=== PATIENT | female | born 1945 | race Caucasian/White ===

== ENCOUNTER 2025-01-06 22:12 | Emergency (ER) | payer MEDICARE, SELFPAY ==
[2025-01-06 22:15] VITALS: BMI 33.9
--- NOTE | 2025-01-06 22:32 | XR_ITS ---
Examination: CT cervical spine without contrast 2-D sagittal reconstructions 2-D coronal reconstructions 3-D reconstructions. Exam date and time:January 06, 2025 1112 hours INDICATIONS: Ground-level fall today with injury to the neck, neck pain CTDI:vol (mGy) 9.83 DLP: (mGycm) 205 Technique: Multiple 2 mm axial sections of the cervical spine have been obtained. The coronal and sagittal reconstructions have been obtained. 3-D reconstructions have been obtained. Low dose protocols were performed. One or more of the following dose reduction techniques were used; automated exposure control, adjustment of the mA and/or KV according to patient size, use of iterative reconstruction technique. Findings: Axial sections demonstrate intact base of the skull. C1 exhibit satisfactory relationship to the odontoid. No acute cervical vertebral body fracture seen. Alignment posterior spinous processes satisfactory. Impression: No acute cervical fracture.
--- NOTE | 2025-01-06 22:32 | XR_ITS ---
Examination: CT brain head without contrast. 2-D sagittal coronal reconstructions Date and time of exam:January 06, 2025 1112 hours INDICATIONS: Patient fell today with injury to the head, head pain CTDI: vol (mGy):51.1 DLP: (mGycm):1116 Technique: Multiple CT axial sections of the brain have been obtained, 5 mm slice thickness. Contrast has not been administered. 2-D sagittal, coronal reconstructions have been obtained Low dose protocols were performed. One or more of the following dose reduction techniques were used; automated exposure control, adjustment of the mA and/or KV according to patient size, use of iterative reconstruction technique. Findings: No significant ventricular enlargement. 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 Left frontal scalp hematoma soft tissue swelling extending anterior to the left nasal bones and left orbit Intra-axial or extra-axial hemorrhage density is not seen. No mass effect or midline shift Basal cisterns are not remarkable. Fourth ventricle is midline. Cranial vault intact. Impression: Negative for acute hemorrhage, mass effect or midline shift
[2025-01-06 22:37] VITALS: BP 176/78; PULSE 69; RESP 19; TEMP 36.5; O2SAT 93
[2025-01-06 23:34] LABS: Basophils # (Auto) 0.1 Thou/mm3 (0.0-0.2); Basophils % (Auto) 1 % (0-2.5); Eosinophils # (Auto) 0.2 Thou/mm3 (0.0-0.5); Eosinophils % (Auto) 2 % (0-10); Hematocrit 38.2 % (36.0-46.0); Hemoglobin 13.6 g/dL (12.0-16.0); Immature Granulocytes % (Auto) 0 % (0-0); Immature Granulocytes Auto 0.03 Thou/mm3 (0.00-0.00); Lymphocytes % (Auto) 12 % (10-50); Mean Corpuscular HGB Conc 35.6 g/dl (31.0-37.0); Mean Corpuscular Volume 87 fL (80-100); Monocytes # (Auto) 0.8 Thou/mm3 (0.0-0.8); Monocytes % (Auto) 9 % (0-12); Neutrophils # (Auto) 6.5 Thou/mm3 (1.8-7.7); Neutrophils % (Auto) 76 % (37-80); Nucleated Red Blood Cell % 0 /100 WBC (0); Platelet Count 157 Thou/mm3 (140-440); RDW Standard Deviation 42.2 fL (36.4-46.3); Red Blood Count 4.39 Miln/mm3 (4.00-5.20); White Blood Count 8.5 Thou/mm3 (3.6-11.0)
[2025-01-06 23:45] LABS: Partial Thromboplastin Time 29.5 Seconds (22.0-36.0); Prothrombin Time 11.4 Seconds (9.0-12.2)
--- NOTE | 2025-01-06 23:47 | PD.EDFALL ---
ED Fall Injury RME/HPI General Chief Complaint: Fall Stated Complaint: FALL, HEAD INJU, HAND/KNEE PAIN, PT ON ELIQUIS Time Seen by Provider: 01/06/25 22:59 Source: patient Arrival date/time: 01/06/25 22:12 Limitations: no limitations RME / HPI RME / HPI Narrative: Dr. [facility] Main ED Evaluation: 79yo female with a history of CAD, HTN, aFib on Eliquis, DM BIBA from home presents to the ED for a fall x 30 minutes [employer]. Patient states she was walking when she tripped and fell, reporting she hit her head on the cement. She denies any loss of consciousness. Patient complains of having bilateral knee pain. Patient denies any chest pain, abdominal pain, back pain, shortness of breath or any other associated symptoms. -PMHx: CAD, HTN, aFib, DM -Social Hx: Former smoker -Current Medications: reviewed; on Eliquis. -PCP: Located in [place]. Related Data Home Medications ?Medication ?Instructions ?Recorded ?Confirmed Valsartan/Hydrochlorothiazide * 1 tab PO QAM #0 tabs 06/18/15 09/11/23 (DIOVAN HCT 320/25 *) amlodipine 5 mg tablet (Norvasc) 5 mg PO QDAY #0 tabs 06/18/15 09/11/23 apixaban 5 mg tablet (Eliquis) 5 mg PO BID ##0 06/18/15 09/11/23 Held on 09/11/23. Instructions: Resume on 09/12/23. YOU CAN RESAUME THIS MEDICATION AT YOUR USUAL TIME ON THIS DATE atenolol 100 mg tablet (Tenormin) 100 mg PO QAM #0 tabs 06/18/15 09/11/23 rosuvastatin 5 mg tablet (Crestor) 5 mg PO QDAY #0 tabs 06/18/15 09/11/23 insulin aspart U-100 100 unit/mL 4 - 6 unit subcut TID 09/11/23 09/11/23 subcutaneous solution (Novolog U-100 Insulin aspart) insulin glargine 100 unit/mL (3 6 - 8 unit subcut HS 09/11/23 09/11/23 mL) subcutaneous pen (Lantus Solostar U-100 Insulin) Allergies Allergy/AdvReac Type Severity Reaction Status Date / Time No Known Allergies Allergy Verified 01/06/25 22:15 Review of Systems Review of Systems Systems Reviewed: All systems reviewed, normal except as documented Past Medical History Past Medical History NEUROLOGIC: Positive Neurological Disorders; Negative Cerebrovascular Accident, Transient Ischemic Attacks (TIA), Dementia, Alzheimer's Disease, Parkinson's Disease, Brain Tumor, Meningitis, Seizures, Epilepsy, Multiple Sclerosis, Cerebral Palsy, Amyotrophic Lateral Sclerosis (ALS/Melonie Gehrig's), Guillain-[place] Syndrome, Spina Bifida, Paralysis, Peripheral Neuropathy, Davis's Palsy, Subdural Hematoma, Migraine, Head Trauma, Spinal Cord Injury or Traumatic Brain Injury CARDIAC: Positive Cardiac Disorders, Cardiac Arrhythmia, Atrial Fibrillation, Angina, Coronary Artery Disease, Hypercholesterolemia and Hypertension; Negative Myocardial Infarction, Heart Murmur, Atherosclerotic Heart Disease, Peripheral Vascular Disease, Aneurysm, Congestive Heart Failure, Congenital Heart Disease, Valvular Heart Disease, Rheumatic Fever, Cardiomyopathy, Edema, Pericarditis, Cellulitis, Deep Vein Thrombosis, Hypotension or Varicose Veins RESPIRATORY: Negative Chronic Obstructive Pulmonary Disease (COPD), Asthma, Bronchitis, Emphysema, Pneumonia, Pulmonary Fibrosis, Cystic Fibrosis, Tuberculosis, Pulmonary Embolism, Pulmonary Edema or Sleep Apnea GASTROINTESTINAL: Positive Gastrointestinal Disorders and Obesity; Negative Hepatitis, Cirrhosis, Pancreatitis, Celiac Disease, Gall Bladder Disease, Gastrointestinal Bleed, Esophageal Varices, Palmer's Esophagus, Colitis, Ulcerative Colitis, Diverticulitis, Diverticulosis, Ulcer, Colorectal Cancer, Irritable Bowel, Crohn's Disease, Obstructive Bowel, Hiatal Hernia, Hemorrhoids or Gastroesophageal Reflux Disease GENITOURINARY: Negative Genitourinary Disorders, Renal Disease, Kidney Stones, Polycystic Kidney Disease, Neurogenic Bladder, Inguinal Hernia or Dialysis REPRODUCTIVE: Positive Endometriosis (WITH HYSTERECTOMY.) and Previous Pregnancies (); Negative Breast Cancer, Genital Herpes, Gonorrhea, Pelvic Inflammatory Disease, Syphilis or Uterine Prolapse MUSCULOSKELETAL: Positive Musculoskeletal Disorders (DIFFICULTY LAYING FLAT.) and Arthritis; Negative Muscular Dystrophy, Myasthenia Gravis, Marfan's Syndrome, Bone Cancer, Rheumatoid Arthritis, Osteoporosis, Degenerative Disk Disease, Gout, Scoliosis, Carpal Tunnel Syndrome, Fibromyalgia, Fractures, Degenerative Joint Disease, Osteomyelitis or Poliovirus ENT: Negative Cataracts, Glaucoma, Blind, Retinal Detachment, Macular Degeneration, Ear Infection, Deafness, Head Trauma or Eye Prosthesis ENDOCRINE: Positive Endocrine Disorders and Diabetes Mellitus Type 2; Negative Diabetes Mellitus Type 1, Hypoglycemia, Roya's Syndrome, Markell's Disease, Hyperthyroidism, Hypothyroidism, Parathyroid Disease, Pituitary Disease, Systemic Lupus Erythematosus, Syndrome of Inappropriate Antidiuretic Hormone (SIADH), Adrenal Disease or Graves' Disease HEMATOLOGIC: Negative Blood Disorders, Anemia, Leukemia, Hemophilia, Thalassemia, Sickle Cell Disease or Clotting Problems PSYCHO/SOCIAL: Negative Psychiatric Problems, Schizophrenia, Recreational Drug Use, Bipolar Disorder, Depression, Anxiety, Behavior Problems, Self-Mutilation, Attention Deficit Disorder, Attention Deficit Hyperactivity Disorder, Depression, Post Traumatic Stress Disorder or Eating Disorder OTHER HISTORY: Positive Hospitalization, Blood Transfusions (PLASMA) and Measles; Negative Autoimmune Disease, Down Syndrome, Autism, Developmental Delay, Shingles, Falls, Blood Transfusion Reaction, Anesthesia Reactions, Organ Transplant, Chemotherapy, Radiation Therapy, Hyperbaric Therapy, MRSA, VRSA, Vancomycin-Resistant Enterococci, Human Immunodeficiency Virus (HIV), Chicken Pox, Mumps, Rubella (Spanish Measles), Pertussis, Clostridium Difficile, Cancer, Breast Cancer, Cervical Cancer, Colorectal Cancer, Lung Cancer or Ovarian Cancer Family History FAMILY HISTORY: Positive Family Cardiac Disorders (father passed from aneurysm, mother also had aneurysm.) and Family Cancer (MOTHER HAD LUNG CA.); Negative Family Psychiatric Problems, Family Respiratory Disorders, Family Gastrointestinal Problems, Family Surgery or Family Anesthesia Reaction Surgical History SURGICAL: Positive Cardiac Surgery, Open Heart Surgery, Coronary Artery Bypass Graft, Cardiac Catheterization, Angiogram and Hysterectomy; Negative Valve Replacement, Vascular Surgery, Coronary Stent, Pacemaker, Auto Implanted Cardiovert Defib, Carotid Endarterectomy, Endocrine Surgery, Thyroidectomy, Ear Surgery, Tympanostomy Tube, Eye Surgery, Nose Surgery, Oral Surgery, Tonsillectomy, Adenoidectomy, Cochlear Implant, Corneal Transplant, Throat Surgery, Abdominal Surgery, Tracheostomy, Gastric Bypass Surgery, Gastrostomy, Bowel Surgery, Nephrectomy, Transurethral Resection, Joint Replacement, Amputation, Open Reduction Internal Fixation, Arthroscopy, Neurologic Surgery, Brain Shunt, Mastectomy, Lumpectomy, Tubal Ligation, Section or Organ Transplant Social History SMOKING STATUS: Former smoker ED Exam Narrative Physical exam: Patient is awake and alert GCS 15 General Limitations: Present no limitations General appearance: Present alert and in no apparent distress Head Head exam: Present other (Ecchymosis to the left eye. 3 cm laceration forehead) Eye Eye exam: Present normal appearance, PERRL and EOMI; Absent scleral icterus ENT ENT exam: Present normal exam, normal oropharynx and TM's normal bilaterally (TMs are clear.. No septal hematoma) Neck Neck exam: Present normal inspection, full ROM and trachea midline Chest Chest inspection: Present normal inspection and symmetric chest wall rise Respiratory Respiratory exam: Present normal lung sounds bilaterally; Absent respiratory distress or wheezes Cardiovascular Cardiovascular exam: Present regular rate, normal rhythm and normal heart sounds Abdominal Exam Abdominal exam: Present soft and normal bowel sounds Extremities Exam Extremities exam: Present normal inspection, full ROM and other (Abrasion to the right anterior knee. Tenderness of patient to the left anterior knee. No open lacerations. Decreased range of motion bilaterally secondary to pain. No swelling.) Back Exam Back exam: Present normal inspection, full ROM and other (No tenderness thoracic or lumbar spine.); Absent tenderness Neurological Exam Neurological exam: Present alert, oriented X3 and CN II-XII intact; Absent motor sensory deficit Psychiatric Psychiatric exam: Present normal affect and normal mood Skin Skin exam: Present warm, dry, intact, normal color and other Course Quality Measures none Orders Category Date Time Status Irrigate Wound NOW Care 01/06/25 23:49 Active Miscellaneous Nursing Order X1 Care 01/06/25 23:50 Active Rigid cervical collar PRN Care 01/06/25 23:[address] cervical spine wo con Stat Exams 01/06/25 22:[address] head/brain wo con Stat Exams 01/06/25 22:32 Completed XR knee LT 3V Stat Exams 01/06/25 23:49 Taken XR knee RT 3V Stat Exams 01/06/25 23:48 Taken CBC Stat Lab 01/06/25 23:23 Completed CMP [Comprehensive Metabolic Panel] Stat Lab 01/06/25 23:23 Completed PT [Prothrombin Time with INR] Stat Lab 01/06/25 23:23 Completed PTT [Partial Thromboplastin Time] Stat Lab 01/06/25 23:23 Completed Lidocaine 1% 20 ml [Xylocaine 1% 20 ML] Med 01/07/25 01:42 Discontinued 20 ml INFL X1 ONE Lidocaine 1% Pf 5 ml [Xylocaine 1% Pf 5 ml] Med 01/07/25 01:12 Discontinued 10 ml INFL X1 ONE Lidocaine 1% Pf 5 ml [Xylocaine 1% Pf 5 ml] Med 01/07/25 01:18 Discontinued 20 ml INFL X1 ONE Vital Signs Vital signs: Vital Signs Temperature 97.7 F 01/06/25 22:37 Pulse Rate 69 01/06/25 22:37 Respiratory Rate 19 01/06/25 22:37 Blood Pressure 176/78 H 01/06/25 22:37 Pulse Oximetry (%) 93 L 01/06/25 22:37 Oxygen Delivery Method Room Air 01/06/25 22:37 Procedures -ED Laceration Laceration 1: Site: face Size (cm): 3 Description: linear Depth: simple, single layer Local Anesthetic: lidocaine 1% Amount of anesthesia used (mL): 5 Pre-repair: irrigated extensively Skin layer closed with: nylon Size (cm): 5-0 Number of sutures: 6 Technique: simple, interrupted Fall MDM Narrative MDM Narrative:: Scribe Attestation: 01/06/25 - Lexi Cobb am scribing for and in the presence of Dr. Neli. Patient data External records reviewed:: [facility] previous records (Per chart review, patient has no previous ED visits or admissions to this facility.) Clinical information provided by:: patient Social determinants that could affect healthcare access:: none Patient has the following chronic illnesses:: CAD, HTN, aFib on Eliquis, DM How is presenting disease/condition affected by chronic disease/condition?: uneffected by Evaluation data The following diagnostics were reviewed and interpreted by me:: lab results and radiology exam(s) Lab and/or radiology exams considered but not ordered:: none Interpretation Summary: CBC is normal, PT and INR are normal, PTT is normal, Glucose is 210, according to my interpretation. Right knee x-ray shows previous hardware in place, no fracture, no dislocation, no soft tissue swelling, according to my interpretation. Left knee x-ray shows osteoarthritis, no fractures, no dislocations, no soft tissue swelling, according to my interpretation. -------- [place] [facility] Report Signed Patient: DARRELL WATSON Record#: [id number] Birthdate: 1945 Age/Sex: 79 / F Location: [facility] Attending Dr: Ordering Physician: Tesha Goss MD Date of Service: 01/06/25 Procedure(s): CT cervical spine wo con Accession Number(s): [id number] cc: Raimundo Berry MD; Tesha Goss MD~ Examination: CT cervical spine without contrast 2-D sagittal reconstructions 2-D coronal reconstructions 3-D reconstructions. Exam date and time:January 06, 2025 1112 hours INDICATIONS: Ground-level fall today with injury to the neck, neck pain CTDI:vol (mGy) 9.83 DLP: (mGycm) 205 Technique: Multiple 2 mm axial sections of the cervical spine have been obtained. The coronal and sagittal reconstructions have been obtained. 3-D reconstructions have been obtained. Low dose protocols were performed. One or more of the following dose reduction techniques were used; automated exposure control, adjustment of the mA and/or KV according to patient size, use of iterative reconstruction technique. Findings: Axial sections demonstrate intact base of the skull. C1 exhibit satisfactory relationship to the odontoid. No acute cervical vertebral body fracture seen. Alignment posterior spinous processes satisfactory. Impression: No acute cervical fracture. Dictated By: Raimundo Berry MD Signed By: <Electronically signed by Raimundo Berry MD in [place]> 01/06/25 2346 [place] [facility] Report Signed Patient: DARRELL WATSON Record#: [id number] Birthdate: 1945 Age/Sex: 79 / F Location: [facility] Attending Dr: Ordering Physician: Tesha Goss MD Date of Service: 01/06/25 Procedure(s): CT head/brain wo con Accession Number(s): [id number] cc: Edinson Solis; Raimundo Berry MD; Tesha Goss MD~ Examination: CT brain head without contrast. 2-D sagittal coronal reconstructions Date and time of exam:January 06, 2025 1112 hours INDICATIONS: Patient fell today with injury to the head, head pain CTDI: vol (mGy):51.1 DLP: (mGycm):1116 Technique: Multiple CT axial sections of the brain have been obtained, 5 mm slice thickness. Contrast has not been administered. 2-D sagittal, coronal reconstructions have been obtained Low dose protocols were performed. One or more of the following dose reduction techniques were used; automated exposure control, adjustment of the mA and/or KV according to patient size, use of iterative reconstruction technique. Findings: No significant ventricular enlargement. 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 Left frontal scalp hematoma soft tissue swelling extending anterior to the left nasal bones and left orbit Intra-axial or extra-axial hemorrhage density is not seen. No mass effect or midline shift Basal cisterns are not remarkable. Fourth ventricle is midline. Cranial vault intact. Impression: Negative for acute hemorrhage, mass effect or midline shift Dictated By: Raimundo Berry MD Signed By: <Electronically signed by Raimundo Berry MD in [place]> 01/06/25 1838 Medications / Prescriptions Medications or Prescriptions considered but not ordered:: none Medication administrations:: Medication Administration History Discontinued Medications Lidocaine HCl (Lidocaine Inj Pf 1% 5 Ml Vial) 10 ml INFL X1 ONE Stop: 01/07/25 01:13 Last Admin: 01/07/25 01:43 Dose: Not Given Documented By: CVL Non-Admin Reason: Medication Not Available Lidocaine HCl (Lidocaine Inj Pf 1% 5 Ml Vial) 20 ml INFL X1 ONE Stop: 01/07/25 01:19 Last Admin: 01/07/25 01:43 Dose: Not Given Documented By: CVL Non-Admin Reason: Medication Not Available Lidocaine HCl (Lidocaine Hcl 1% 20 Ml Vial) 20 ml INFL X1 ONE Stop: 01/07/25 01:43 see above, if any Consultations Consultation(s) initiated? (list below): No Diagnosis Fall Differential Diagnosis: other (mechanical fall, ICH, laceration, contusion, fracture, dislocation) Most likely diagnosis given after review of the tests above:: see clinical impression below Admission Indicated Admission indicated?: not indicated Admission Request Was there a request for admission?: No Disposition Plan Disposition Plan: Discharge Discharge Attestation Discharge Attestation: The patient and all family members were given an opportunity to ask questions and understood the discharge instructions. Discharge instructions specifically effects, indications for sooner follow up or return to the emergency department, and the expected course of current diagnosis. Patient condition: Stable Discharge Plan Plan Patient Disposition: HOME (Self Care) Patient condition on transfer: Stable Prescriptions/Referrals Prescriptions/Med Rec: No Action atenolol [Tenormin] 100 MG tablet 100 mg PO QAM Qty: 0 amlodipine [Norvasc] 5 MG tablet 5 mg PO QDAY Qty: 0 rosuvastatin [Crestor] 5 MG tablet 5 mg PO QDAY Qty: 0 Eliquis 5 MG tablet 5 mg PO BID Qty: 0 Valsartan/Hydrochlorothiazide * (DIOVAN HCT 320/25 *) 1 TAB tablet 1 tab PO QAM Qty: 0 insulin glargine [Lantus Solostar U-100 Insulin] 100 unit/mL (3 mL) Insulin Pen 6 - 8 unit SUBCUT HS insulin aspart U-100 [Novolog U-100 Insulin aspart] 100 unit/mL Solution 4 - 6 unit SUBCUT TID Referrals: Edinson Solis MD [Primary Care Provider] - In 1 week Problem List Clinical Impression: CHI (closed head injury), Laceration of scalp, Ground-level fall Patient/Caregiver Discharge Instructions Education Materials: Preventing Falls Moving Safely ..., ED Laceration Scalp Sutures or ... Additional Instructions: Please get your sutures removed in 5 days. Follow up with your primary care provider for a recheck. Return to the emergency department for any worsening or other concerning symptoms. Print Language: Turkish Stand Alone Forms: Veronica Award Info., Patient Portal Info Letter
[2025-01-06 23:48] LABS: Alanine Aminotransferase 15 U/L (10-49); Albumin, Serum 4.6 gm/dL (3.4-4.8); Albumin/Globulin Ratio 1.6 (1.2-2.2); Alkaline Phosphatase 63 U/L (46-116); Anion Gap 12 (7-16); Aspartate Amino Transferase 22 U/L (0-34); BUN/Creatinine Ratio 14 Ratio (12-20); Bilirubin,Total 0.8 mg/dL (0.3-1.2); Blood Urea Nitrogen 14 mg/dL (9-23); Calcium 9.1 mg/dL (8.3-10.6); Calcium (Corrected) 9.1 mg/dL (8.5-10.1); Chloride 99 mMol/L (98-107); Estimated Creatinine Clearance 54.8 mL/min (>60); Globulin 2.8 gm/dL (2.3-3.5); Glucose 210 mg/dL (74-106); Osmolality,Calculated 280 (275-295); Potassium 3.5 mMol/L (3.4-5.1); Sodium 137 mMol/L (136-145); Total Protein 7.4 gm/dL (5.7-8.2); eGFR 58 See Note
--- NOTE | 2025-01-06 23:48 | XR_ITS ---
Examination: Knee, right , 3 views Technique: Knee AP, lateral, oblique 3 views Date and time of exam: January 07, 2025 at 0003 hours INDICATIONS: Patient fell today with injury to the knee, knee pain FINDINGS: Total right knee arthroplasty. Satisfactory alignment. No fracture. No loosening of the prosthetic components IMPRESSION: Total right knee arthroplasty with satisfactory alignment
--- NOTE | 2025-01-06 23:49 | XR_ITS ---
Examination: Knee, left , 3 views Technique: Knee AP, lateral, oblique 3 views Date and time of exam: January 07, 2025 0005 hours INDICATIONS: Patient fell today with injury to the knee, knee pain FINDINGS: Severe osteopenia No acute fracture Advanced tricompartment osteoarthritis IMPRESSION: No acute fracture
[2025-01-07 01:34] VITALS: BP 146/90; PULSE 64; RESP 18; TEMP 36.6; O2SAT 95
[2025-01-07] MEDS: LIDOCAINE HCL 1% 20 ML VIAL INFL (02:33)
[2025-01-07 02:45] VITALS: BP 140/89; PULSE 70; RESP 18; TEMP 36.6; O2SAT 95
== END 2025-01-07 02:45 | disposition home or self-care (01) ==
PROVIDERS: Emergency Provider Emergency Medicine; PCP Internal Medicine
DX: S01.01XA Laceration without foreign body of scalp, initial encounter (principal); S19.9XXA Unspecified injury of neck, initial encounter; S09.90XA Unspecified injury of head, initial encounter; S89.92XA Unspecified injury of left lower leg, initial encounter; S89.91XA Unspecified injury of right lower leg, initial encounter; M17.12 Unilateral primary osteoarthritis, left knee; W01.0XXA Fall on same level from slipping, tripping and stumbling without subsequent striking against object, initial encounter; Y93.01 Activity, walking, marching and hiking
CPT/HCPCS: 12002; 36415; 70450; 72125; 73562; 80053; 85025; 85610; 85730; 99284; J3490

== ENCOUNTER 2025-06-13 13:30 | Emergency (ER) | payer MEDICARE, SELFPAY ==
[2025-06-13 13:47] VITALS: BP 181/96; PULSE 64; RESP 21; TEMP 36.7; O2SAT 94; BMI 31.0
--- NOTE | 2025-06-13 13:48 | XR_ITS ---
Examination: Shoulder, right, 3 views Technique: Shoulder AP internal rotation, AP external rotation, Y view shoulder, 3 views Exam date and time : June 13, 2025, 1415 hours INDICATIONS: Patient fell today with injury of the shoulder, shoulder pain. FINDINGS: No shoulder fracture or dislocation Moderate osteoarthritis glenohumeral joint IMPRESSION: No shoulder fracture or dislocation
--- NOTE | 2025-06-13 13:48 | XR_ITS ---
Examination: CT brain head without contrast. 2-D sagittal coronal reconstructions Date and time of exam: June 13, 2025, 1416 hours INDICATIONS: Ground-level fall today with injury to the head, head pain CTDI: vol (mGy): 51 DLP: (mGycm): 1051 Technique: Multiple CT axial sections of the brain have been obtained, 5 mm slice thickness. Contrast has not been administered. 2-D sagittal, coronal reconstructions have been obtained Low dose protocols were performed. One or more of the following dose reduction techniques were used; automated exposure control, adjustment of the mA and/or KV according to patient size, use of iterative reconstruction technique. Findings: No significant ventricular enlargement. Intra-axial or extra-axial hemorrhage density is not seen. No mass effect or midline shift Basal cisterns are not remarkable. Fourth ventricle is midline. Cranial vault intact. 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
--- NOTE | 2025-06-13 13:48 | XR_ITS ---
Examination: CT cervical spine without contrast 2-D sagittal reconstructions 2-D coronal reconstructions 3-D reconstructions. Exam date and time: June 13, 2025, 1416 hours INDICATIONS: Ground-level fall today with injury to the neck, neck pain CTDI:vol (mGy) 17.2 DLP: (mGycm) 354 Technique: Multiple 2 mm axial sections of the cervical spine have been obtained. The coronal and sagittal reconstructions have been obtained. 3-D reconstructions have been obtained. Low dose protocols were performed. One or more of the following dose reduction techniques were used; automated exposure control, adjustment of the mA and/or KV according to patient size, use of iterative reconstruction technique. Findings: Axial sections demonstrate intact base of the skull. C1 exhibit satisfactory relationship to the odontoid. No acute cervical vertebral body fracture seen. Alignment posterior spinous processes satisfactory. Impression: No acute cervical fracture.
--- NOTE | 2025-06-13 13:48 | XR_ITS ---
EXAMINATION: PA chest single view TECHNIQUE: Upright PA chest single view Date and time: June 13, 2025, 1417 hours, comparison September 11, 2023 INDICATIONS: Patient fell today with chest pain FINDINGS: Moderate enlargement left ventricle CABG Cardiac leads satisfactory position Prominent vascular congestion No pneumothorax Clavicles ribs appear intact IMPRESSION: No pneumothorax Clavicles ribs appear intact
--- NOTE | 2025-06-13 13:50 | EDNOTE_ITS ---
<Statement entered by Rosa Thompson MD - 06/13/25 17:55> As co-signing physician, I was present and available for consult prn. I concur with the plan and care as documented by the midlevel provider. ED General RME/HPI General Chief complaint: Fall Stated complaint: HEAD LAC, RIGHT SHOULDER PAIN Time Seen by Provider: 06/13/25 13:44 Arrival date/time: 06/13/25 13:30 CC: Right sided headache HPI patient tripped and fell over a plastic box falling onto her right shoulder and head denies LOC admits she is on Eliquis. Patient currently denies dizziness blurred vision seeing spots altered mentation recurrent falls. Patient is awake alert oriented x 3 Glascow coma 15 no focal deficits with the scalp pain secondary to a small laceration with no active bleeding. Related Data Home Medications ?Medication ?Instructions ?Recorded ?Confirmed Valsartan/Hydrochlorothiazide * 1 tab PO QAM #0 tabs 1 09/11/23 (DIOVAN HCT 320/25 *) amlodipine 5 mg tablet (Norvasc) 5 mg PO QDAY #0 tabs 06/18/15 09/11/23 apixaban 5 mg tablet (Eliquis) 5 mg PO BID ##0 5 09/11/23 Held on 09/11/23. Instructions: Resume on 09/12/23. YOU CAN RESAUME THIS MEDICATION AT YOUR USUAL TIME ON THIS DATE atenolol 100 mg tablet (Tenormin) 100 mg PO QAM #0 tab s 06/18/15 09/11/23 rosuvastatin 5 mg tablet (Crestor) 5 mg PO QDAY #0 tab s 06/18/15 09/11/23 insulin aspart U-100 100 unit/mL 4 - 6 unit subcut TID 09/11/23 09/11/23 subcutaneous solution (Novolog U-100 Insulin aspart) insulin glargine 100 unit/mL (3 6 - 8 unit subcut HS 0 09/11/23 09/11/23 mL) subcutaneous pen (Lantus Solostar U-100 Insulin) Allergies Allergy/AdvReac Type Severity Reaction Status Date / Time No Known Allergies Allergy Verified 01/06/25 22:15 Review of Systems Review of Systems Narrative Review of Systems: GEN: No fever, no chills, no weight loss EYES: No discharge, no visual changes, no pain HEENT: No ear pain, no congestion, no sore throat PULM: No shortness of breath, no cough, no congestion CV: No chest pain, no dyspnea on exertion, no palpitations GI: No nausea, no vomiting, no diarrhea, no pain, no constipation : No frequency, no urgency, no dysuria MUSC/SKEL: No joint pain, no back pain SKIN: No rash PSYCH: No hallucinations, no depression HEME/LYMPH: No easy bleeding or bruising tendencies NEURO: No weakness, + headache Past Medical History Past Medical History NEUROLOGIC: Positive Neurological Disorders; Negative Cerebrovascular Accident, Transient Ischemic Attacks (TIA), Dementia, Alzheimer's Disease, Parkinson's Disease, Brain Tumor, Meningitis, Seizures, Epilepsy, Multiple Sclerosis, Cerebral Palsy, Amyotrophic Lateral Sclerosis (ALS/Melonie Gehrig's), Guillain-Zurich Syndrome, Spina Bifida, Paralysis, Peripheral Neuropathy, Davis's Palsy, Subdural Hematoma, Migraine, Head Trauma, Spinal Cord Injury or Traumatic Brain Injury CARDIAC: Positive Cardiac Disorders, Cardiac Arrhythmia, Atrial Fibrillation, Angina, Coronary Artery Disease, Hypercholesterolemia and Hypertension; Negative Myocardial Infarction, Heart Murmur, Atherosclerotic Heart Disease, Peripheral Vascular Disease, Aneurysm, Congestive Heart Failure, Congenital Heart Disease, Valvular Heart Disease, Rheumatic Fever, Cardiomyopathy, Edema, Pericarditis, Cellulitis, Deep Vein Thrombosis, Hypotension or Varicose Veins RESPIRATORY: Negative Chronic Obstructive Pulmonary Disease (COPD), Asthma, Bronchitis, Emphysema, Pneumonia, Pulmonary Fibrosis, Cystic Fibrosis, Tuberculosis, Pulmonary Embolism, Pulmonary Edema or Sleep Apnea GASTROINTESTINAL: Positive Gastrointestinal Disorders and Obesity; Negative Hepatitis, Cirrhosis, Pancreatitis, Celiac Disease, Gall Bladder Disease, Gastrointestinal Bleed, Esophageal Varices, Palmer's Esophagus, Colitis, Ulcerative Colitis, Diverticulitis, Diverticulosis, Ulcer, Colorectal Cancer, Irritable Bowel, Crohn's Disease, Obstructive Bowel, Hiatal Hernia, Hemorrhoids or Gastroesophageal Reflux Disease GENITOURINARY: Negative Genitourinary Disorders, Renal Disease, Kidney Stones, Polycystic Kidney Disease, Neurogenic Bladder, Inguinal Hernia or Dialysis REPRODUCTIVE: Positive Endometriosis (WITH HYSTERECTOMY.) and Previous Pregnanc ies (); Negative Breast Cancer, Genital Herpes, Gonorrhea, Pelvic Inflammatory Disease, Syphilis or Uterine Prolapse MUSCULOSKELETAL: Positive Musculoskeletal Disorders (DIFFICULTY LAYING FLAT.) and Arthritis; Negative Muscular Dystrophy, Myasthenia Gravis, Marfan's Syndrome, Bone Cancer, Rheumatoid Arthritis, Osteoporosis, Degenerative Disk Disease, Gout, Scoliosis, Carpal Tunnel Syndrome, Fibromyalgia, Fractures, Degenerative Joint Disease, Osteomyelitis or Poliovirus ENT: Negative Cataracts, Glaucoma, Blind, Retinal Detachment, Macular Degeneration, Ear Infection, Deafness, Head Trauma or Eye Prosthesis ENDOCRINE: Positive Endocrine Disorders and Diabetes Mellitus Type 2; Negative Diabetes Mellitus Type 1, Hypoglycemia, Roya's Syndrome, Fayette's Disease, Hyperthyroidism, Hypothyroidism, Parathyroid Disease, Pituitary Disease, Systemic Lupus Erythematosus, Syndrome of Inappropriate Antidiuretic Hormone (SIADH), Adrenal Disease or Graves' Disease HEMATOLOGIC: Negative Blood Disorders, Anemia, Leukemia, Hemophilia, Thalassemia, Sickle Cell Disease or Clotting Problems PSYCHO/SOCIAL: Negative Psychiatric Problems, Schizophrenia, Recreational Drug Use, Bipolar Disorder, Depression, Anxiety, Behavior Problems, Self-Mutilation, Attention Deficit Disorder, Attention Deficit Hyperactivity Disorder, Depression, Post Traumatic Stress Disorder or Eating Disorder OTHER HISTORY: Positive Hospitalization, Blood Transfusions (PLASMA) and Measles; Negative Autoimmune Disease, Down Syndrome, Autism, Developmental Delay, Shingles, Falls, Blood Transfusion Reaction, Anesthesia Reactions, Organ Transplant, Chemotherapy, Radiation Therapy, Hyperbaric Therapy, MRSA, VRSA, Vancomycin-Resistant Enterococci, Human Immunodeficiency Virus (HIV), Chicken Pox, Mumps, Rubella (Micronesian Measles), Pertussis, Clostridium Difficile, Cancer, Breast Cancer, Cervical Cancer, Colorectal Cancer, Lung Cancer or Ovarian Cancer Family History FAMILY HISTORY: Positive Family Cardiac Disorders (father passed from aneurysm, mother also had aneurysm.) and Family Cancer (MOTHER HAD LUNG CA.); Negative Family Psychiatric Problems, Family Respiratory Disorders, Family Gastrointestinal Problems, Family Surgery or Family Anesthesia Reaction Surgical History SURGICAL: Positive Cardiac Surgery, Open Heart Surgery, Coronary Artery Bypass Graft, Cardiac Catheterization, Angiogram and Hysterectomy; Negative Valve Replacement, Vascular Surgery, Coronary Stent, Pacemaker, Auto Implanted Cardiovert Defib, Carotid Endarterectomy, Endocrine Surgery, Thyroidectomy, Ear Surgery, Tympanostomy Tube, Eye Surgery, Nose Surgery, Oral Surgery, Tonsillectomy, Adenoidectomy, Cochlear Implant, Corneal Transplant, Throat Surgery, Abdominal Surgery, Tracheostomy, Gastric Bypass Surgery, Gastrostomy, Bowel Surgery, Nephrectomy, Transurethral Resection, Joint Replacement, Amputation, Open Reduction Internal Fixation, Arthroscopy, Neurologic Surgery, Brain Shunt, Mastectomy, Lumpectomy, Tubal Ligation, Section or Organ Transplant Social History SMOKING STATUS: Never smoker ED Exam Narrative Physical exam: [General: Obese not in in any acute distress Head 1 cm nonbleeding full-thickness laceration to the right parietal scalp, no depression or hematoma. No active bleeding. No other step-offs hematomas depressions HEENT: Eyes pupils are PERRLA EOMs intact no entrapment, no facial asymmetry or bogginess no epistaxis rhinorrhea no otorrhea no raccoon's eyes or muir signs. Mouth: [place] moist membranes uvula is midline no step-off in the upper and lower mandible with palpation no pops or clicks with palpation of the TMJ during mastication. Neck is supple nontender, no edema no JVD Chest equal chest rise nontender to palpation Respiratory: Clear to auscultation no wheezes crackles or rubs CV: Rate rhythm is regular no murmurs rubs or clicks Abdomen is soft nontender no masses positive bowel sounds all 4 quadrants Back: No CVA tenderness no spinous process tenderness from cervical spine thoracic and lumbar spine Skin: 1 cm right parietal full-thickness laceration. Otherwise skin is intact no petechiae rash induration ulceration or crepitus Extremities: No pain with pelvic squeeze, decreased range of motion of the right upper extremity secondary to shoulder pain. Moving all other extremities against resistance cap refill less than 2 seconds neurosensory intact Neuro: Awake alert oriented x3 Glascow coma 15 no focal deficits] Course Quality Measures none Orders Category Date Time Status CT cervical spine wo con Stat Exams 06/13/25 13:[address] head/brain wo con Stat Exams 06/13/25 13:48 Completed XR chest 1V Stat Exams 06/13/25 13:48 Completed XR shoulder RT min 2V Stat Exams 06/13/25 13:48 Completed Vital Signs Vital signs: Vital Signs Temperature 98.0 F 06/13/25 13:47 Pulse Rate 64 06/13/25 13:47 Respiratory Rate 21 H 06/13/25 13:47 Blood Pressure 181/96 H 06/13/25 13:47 Pulse Oximetry (%) 94 L 06/13/25 13:47 Oxygen Delivery Method Room Air 06/13/25 13:47 PROCEDURES: Procedure Comment Right parietal scalp 2 cm laceration cleaned and probed no foreign body was found minimal oozing, site was approximated with 2 rashmi without complication patient tolerated procedure well. Discharge Plan Plan Patient Disposition: HOME (Self Care) Patient condition on transfer: Stable Prescriptions/Referrals Prescriptions/Med Rec: No Action atenolol [Tenormin] 100 MG tablet 100 mg PO QAM Qty: 0 amlodipine [Norvasc] 5 MG tablet 5 mg PO QDAY Qty: 0 rosuvastatin [Crestor] 5 MG tablet 5 mg PO QDAY Qty: 0 Eliquis 5 MG tablet 5 mg PO BID Qty: 0 Valsartan/Hydrochlorothiazide * (DIOVAN HCT 320/25 *) 1 TAB tablet 1 tab PO QAM Qty: 0 insulin glargine [Lantus Solostar U-100 Insulin] 100 unit/mL (3 mL) Insulin Pen 6 - 8 unit SUBCUT HS insulin aspart U-100 [Novolog U-100 Insulin aspart] 100 unit/mL Solution 4 - 6 unit SUBCUT TID Referrals: Edinson Solis MD [Primary Care Provider] - In 1 week Problem List Clinical Impression: Fall, Laceration of scalp, Contusion of right shoulder Patient/Caregiver Discharge Instructions Education Materials: Bone Contusion, ED Head Injury (Adult) Print Language: Azeri Stand Alone Forms: Veronica Award Info., Work/School Release, Patient Portal Info Letter PA/PHARMACEUTICAL DETAILER Supervising Physician PA/PHARMACEUTICAL DETAILER Supervising Physician: Shaq Solis ENP [facility] Clinical Information Provided by: patient and EMS Medical Records reviewed [facility] and EMS Meds/Rx considered, not ordered None Labs/Rad/Tests considered, not ordered None Chronic Illness/Social Conditions Explain: Hypertension diabetes A-fib EKG EKG not done
[2025-06-13 17:10] VITALS: BP 171/94; PULSE 82; RESP 18; TEMP 36.8; O2SAT 98
== END 2025-06-13 17:10 | disposition home or self-care (01) ==
PROVIDERS: Emergency Provider Emergency Medicine; PCP Internal Medicine
DX: S40.011A Contusion of right shoulder, initial encounter (principal); S46.911A Strain of unspecified muscle, fascia and tendon at shoulder and upper arm level, right arm, initial encounter; S01.01XA Laceration without foreign body of scalp, initial encounter; E11.9 Type 2 diabetes mellitus without complications; I10 Essential (primary) hypertension; I48.91 Unspecified atrial fibrillation; W01.0XXA Fall on same level from slipping, tripping and stumbling without subsequent striking against object, initial encounter; Z79.01 Long term (current) use of anticoagulants; Z90.10 Acquired absence of unspecified breast and nipple; Z95.1 Presence of aortocoronary bypass graft; Z95.5 Presence of coronary angioplasty implant and graft; Z96.60 Presence of unspecified orthopedic joint implant
CPT/HCPCS: 12001; 70450; 71045; 72125; 73030; 99282